=== PATIENT | male | born 1965 | race Two or more races ===

== ENCOUNTER 2018-11-22 06:18 | Emergency (ER) | payer SELFPAY ==
[2018-11-22 06:28] VITALS: BP 117/75; PULSE 58; TEMP 97.9; BMI 27.2
[2018-11-22] MEDS ORDERED: OLANZapine 5 MG TABLET PO ONE (07:45)
[2018-11-22] MEDS ORDERED: OLANZapine 10 MG TABLET ONE (07:54)
--- NOTE | 2018-11-22 09:04 | PDOC ---
Documentation entered by Madeline Eastman SCRIBE, acting as scribe for Gabriel Castanon MD. Gabriel Castanon MD: This documentation has been prepared by the Jaren wade Sammi, SCRIBE, under my direction and personally reviewed by me in its entirety. I confirm that the documentation accurately reflects all work, treatment, procedures, and medical decision making performed by me. History of Present Illness - General Chief Complaint: Psychiatric Stated Complaint: MENTAL EVALUATIONS Time Seen by Provider: 11/22/18 07:26 - History of Present Illness Initial Comments: 11/22/18 07:45 The patient is a 53 year old male, with a PMH of schizophrenia (noncompliant), who presents to the emergency department for evaluation of several days of hearing animal voices.Patient endorses that he sees taking his unknown antipsychotic medication several months ago. Patient denies suicidal homicidal ideations. Patient denies illicit drug use. Patient endorses that he lives in [facility] and does not recall how he ended up in [place]. Patient denies any other associated complaints. Allergies: NKDA Social history: none reported [facility] Past History - Past Medical History Allergies/Adverse Reactions: Allergies Allergy/AdvReac Type Severity Reaction Status Date / Time No Known Allergies Allergy Verified 11/22/18 06:28 Home Medications: Ambulatory Orders Olanzapine 5 mg PO DAILY 30 Days #30 tablet 11/22/18 COPD: No Other medical history: DENIES - Immunization History Immunization Up to Date: Yes - Psycho Social/Smoking Cessation Hx Smoking History: Never smoked Have you smoked in the past 12 months: No Information on smoking cessation initiated: No Hx Alcohol Use: No Drug/Substance Use Hx: No Review of Systems - Review of Systems Comments:: 11/22/18 07:46 CONSTITUTIONAL: No fever, no chills, no fatigue CARDIOVASCULAR: No chest pain, no palpitations RESPIRATORY: No cough, no SOB SKIN: No rash NEURO: No headache PSYCH: +hearing animal voices *Physical Exam - Vital Signs Last Vital Signs Temp Pulse Resp BP Pulse Ox 97.9 F 58 L 17 117/75 99 11/22/18 06:25 11/22/18 06:25 11/22/18 06:25 11/22/18 06:25 11/22/18 06:25 - Physical Exam Comments: 11/22/18 08:47 EXAMINATION CONSTITUTIONAL: Awake; well-nourished; in no apparent distress HEAD: Normocephalic; atraumatic EYES: PERRL; EOM intact ENMT: External appears normal; normal oropharynx NECK: Supple; non-tender; no cervical lymphadenopathy CARD: Normal S1, S2; no murmurs, rubs, or gallops RESP: Normal chest excursion with respiration; breath sounds clear and equal bilaterally; no wheezes, rhonchi, or rales ABD: Soft, non-distended; non-tender; no palpable organomegaly, no palpable hernias EXT: Normal ROM in all four extremities; non-tender to palpation; distal pulses intact SKIN: Warm, dry, no rash NEURO: Patient is alert, oriented to self and place; moving all extremities symmetrically; cranial nerves II through XII are grossly intact. 11/22/18 08:54 PSYCH: Attitude: Patient is cooperative, easily engaged Appearance: Normal Hygiene and grooming: Good Affect: Flat Speech: Slow, volume is low, patient is at times difficult to understand Thought process: No evidence of flight of ideas, Insight: Patient appears to understand that he is suffering from an mental illness that requires treatment ED Treatment Course - Medications Given in the ED: ED Medications Discontinued Medications Generic Name Dose Route Start Last Admin Trade Name Ulices PRN Reason Stop Dose Admin Olanzapine 5 mg 11/22/18 07:45 11/22/18 07:55 Zyprexa - PO 11/22/18 07:46 5 mg ONCE ONE Administration Medical Decision Making - Medical Decision Making 11/22/18 11:10 Patient is a 53-year-old male with history of schizophrenia, noncompliant with medication regimen who presents to the ER complaining of auditory hallucinations. Patient denies suicidal homicidal ideations. Patient does not appear to be acutely agitated at this time. Case discussed with Chang Leyva of psychiatry. Advises initiation of olanzapine at 5 mg p.o. Will consult case management for disposition. 11/22/18 14:40 Patient interviewed by case management. Will be provided transportation I will prescribe olanzapine-5 mg daily with follow-up with patient's psychiatrist. Discharge - Discharge Information Problems reviewed: Yes Clinical Impression/Diagnosis: Auditory hallucinations Condition: Stable Disposition: HOME - Admission No - Follow up/Referral Referrals: La Nena Terry MD [Staff Physician] - - Patient Discharge Instructions Patient Printed Discharge Instructions: DI for Schizophrenia - Post Discharge Activity
== END 2018-11-22 15:20 | disposition home or self-care (01) ==
LOC: JER 06:18
DX: F20.9 Schizophrenia, unspecified (principal); R44.0 Auditory hallucinations
CPT/HCPCS: 99282-25